=== PATIENT | female | born 1930 | race Caucasian/White ===

== ENCOUNTER → 2016-07-03 | Outpatient (CLI) | payer MEDICARE ==
[2016-07-03 10:36] LABS: BASOPHILS % (AUTO) 0 % (0-2); EOSINOPHILS # (AUTO) 0.2 10^3uL; EOSINOPHILS % (AUTO) 2 % (0-4); MEAN CORPUSCULAR HEMOGLOBIN 29.7 PG (26.0-34.0); MEAN CORPUSCULAR HGB CONC 32.3 g/dL (31.0-37.0); MEAN CORPUSCULAR VOLUME 92 FL (80-100); MEAN PLATELET VOLUME 9.9 FL (6.0-9.5); MONOCYTES # (AUTO) 0.8 X10^3; MONOCYTES % (AUTO) 7 % (3-11); NEUTROPHILS # (AUTO) 7.4 X10^3; NEUTROPHILS % (AUTO) 64 % (51-67); PLATELET COUNT 180 10^3uL (150-450)
[2016-07-03 11:13] LABS: ERYTHROCYTE SEDIMENTATION RT* 17 mm/hr (0-23)
== END ==
LOC: LAB 10:23
PROVIDERS: ATTEND Internal Medicine
DX: R51 Headache (principal)
CPT/HCPCS: 36415; 85025; 85652

== ENCOUNTER → 2016-07-30 | Outpatient (REF) | payer MEDICARE ==
[2016-07-30 18:20] LABS: BASOPHILS % (AUTO) 0 % (0-2); EOSINOPHILS # (AUTO) 0.2 10^3uL; EOSINOPHILS % (AUTO) 3 % (0-4); LYMPHOCYTES # (AUTO) 2.9 X10^3; MEAN CORPUSCULAR HEMOGLOBIN 30.8 PG (26.0-34.0); MEAN CORPUSCULAR VOLUME 91 FL (80-100); MONOCYTES # (AUTO) 0.8 X10^3; MONOCYTES % (AUTO) 10 % (3-11); NEUTROPHILS # (AUTO) 3.7 X10^3; NEUTROPHILS % (AUTO) 49 % (51-67); PLATELET COUNT 216 10^3uL (150-450); WHITE BLOOD COUNT 7.63 10^3uL (4.0-11.0)
[2016-07-30 18:21] LABS: ANION GAP 16.9 MEQ/L (3-15)
== END ==
LOC: LAB 16:56
PROVIDERS: ATTEND Internal Medicine
DX: E11.9 Type 2 diabetes mellitus without complications (principal); R10.13 Epigastric pain; K86.1 Other chronic pancreatitis; I10 Essential (primary) hypertension
CPT/HCPCS: 80048; 82150; 83036; 83690; 84450; 85025; 86140

== ENCOUNTER → 2016-08-22 | Outpatient (CLI) | payer MEDICARE ==
[~2016-08-22] MED LIST: ROPIVACAINE 1% 10 MG/ML (NAROPIN) 10 ML AMPUL ONE; methylPREDNISolone 80 MG/ML (DEPO MEDROL) VIAL IM ONE
== END ==
LOC: PMC 11:18
PROVIDERS: ATTEND Internal Medicine
DX: M75.52 Bursitis of left shoulder (principal)
CPT/HCPCS: 20610; J1040; J2795

== ENCOUNTER 2016-10-08 11:50 | Emergency (ER) | payer MEDICARE ==
[~2016-10-08] VITALS: Ht 142.2 cm; Wt 61.0 kg
[~2016-10-08 11:50] MED LIST changes: +AML5T PO; +ASPI-504 PO; +CYAN100072 PO; +FURO-125 PO; +GLIM1TAB PO; +HYDR-2013 PO; +HYDR-229 PO; +LIPA1CAP26 PO; +LVF500T PO; +NF-GLIP2.5 PO; +OMEP20CA6 PO; +ONDA4TAB8 PO; +PRAM0.12 PO; +PRV20T PO; -ROPIVACAINE 1% 10 MG/ML (NAROPIN) 10 ML AMPUL ONE; +SERT25TA PO; +SERT25TA69 PO; -methylPREDNISolone 80 MG/ML (DEPO MEDROL) VIAL IM ONE; +statin
--- OUTSIDE RECORDS SUMMARY | 2016-10-08 11:54 | XMS REPORT | Continuity of Care Document ---
Author Author Franco [facility] Address Unknown Phone Unavailable Care Team Providers Care Cat Operator Name Role Phone ZANE GILL MD PCP [phone] Insurance Providers Payer Name Policy Number Subscriber Name Relationship Medicare Advantage [id number] Tammy Boswell 20 Self / Same As Patient Advance Directives Directive Response Recorded Date/Time Advanced Directives No 04/24/16 9:44pm Other Pt. does not have DPOA; Advanced Directives or Living Will. Daughter state 07/27/15 8:48am Chief Complaint and Reason for Visit Chief Complaint Pain Reason for Visit Left shoulder pain Problems Active Problems Medical Problem Onset Date Status Abdominal pain 04/29/2013 Acute Abdominal pain ~07/27/2015 Acute Bacteremia 05/03/2013 Acute Chest pain 04/19/2013 Acute Left shoulder pain Unknown Acute Pain in calf 03/04/2013 Acute Pruritic rash 07/03/2013 Acute Medications Current Home Medications Medication Dose Units Route Directions Days/Qty Instructions Start Date Amlodipine Besylate (Norvasc) 5 Mg 5 Mg ORAL Daily 03/04/13 Sertraline Hcl (Zoloft) 25 Mg 25 Mg ORAL Daily 04/19/13 Pravastatin Sodium (Pravachol) 20 Mg 20 Mg ORAL Daily 04/19/13 Pramipexole (Pramipexole Dihydrochloride) 0.125 Mg 0.25 Mg ORAL Bedtime 04/19/13 Aspirin 81 Mg 81 Mg ORAL Daily 04/19/13 Cyanocobalamin (Vitamin B-12) 1,000 Mcg 2,000 Mcg ORAL Daily Omeprazole 20 Mg 20 Mg ORAL Daily 04/19/13 Ondansetron 4 Mg 4 Mg ORAL Every 4HRS as needed for Nausea 10 07/27/15 Glimepiride 1 Mg 1 Mg ORAL Daily 90 08/11/15 Past Home Medications Medication Directions Ordered Status Glipizide 2.5 Mg Tab.er.24, 2.5 Mg Oral Daily 03/04/13 Discontinued Lipase/Protease/Amylase 1 Each Capsule.dr, 1 Cap Oral Breakfast And Lunch 08/12 Discontinued [Statin] , 03/04/13 Discontinued Hydrocodone Bit/Acetaminophen 1 Each Tablet, 1 - 2 Each Oral Every 4HRS 03/04 Discontinued Furosemide 20 Mg Tablet, 20 Mg Oral M W F 04/19/13 Discontinued Hydrocodone Bit/Acetaminophen 1 Each Tablet, 1 Each Oral Three Times A Day Discontinued Levofloxacin 500 Mg Tab, 500 Mg Oral 05/05/13 Discontinued Social History Social History Problem Response Recorded Date/Time Onset Date Status Exposure to occupational hazards Yes 05/03/2013 1:10pm Query Response Start Date Stop Date Smoking Status Former smoker Hospital Discharge Instructions No hospital discharge instructions. Plan of Care Discharge Date 04/24/16 10:40pm Disposition 01 HOME OR SELF-CARE Condition at Discharge Stable Instructions/Education Provided Shoulder Dislocation Exercises (GEN) Shoulder Sprain (ED) Prescriptions See Medication Section Referrals ZANE GILL MD - Additional Instructions/Education It is unclear what is causing your pain in the shoulder. It is likely a strain. If it is not getting better with range of motion exercises and the splint in the next 1-2 days then return to the hospital for a CT scan to look for a hidden fracture. Use your home norco for pain medications. Some of your test results may not be complete prior to your leaving the Emergency Department. The Emergency Department is not authorized to give test results over the phone. Please contact the doctor's office listed in this packet of information for your final results. Follow up with your primary care physician or return to the Emergency Department for worsening or worrisome symptoms. * Emergency Department phone number: [phone], x [phone]* MEDICAL RECORD If you need copies of your X-rays, call [phone]. If you need copies of your medical record, including lab results, a signed authorization for release of records will be required. A telephone call for release of Health Information is not allowed. BILLING Billing can sometimes be confusing and frustrating. To help avoid confusion in the future, please take a moment to acquaint yourself with the billing parties for services. SERVICE BILLING LIBERTARIAN Emergency Room Services [facility] Physician Services [facility] X-rays [facility] Patients will receive bills for services from the appropriate provider. If you have any questions about your [facility] bill, our staff will be happy to assist you. Please call [phone], and ask for the billing department. THANK YOU for choosing [facility] as your emergency care provider! Care Plan and Goals ~~Discharge Care Plan~~ Problem: Contusion, pain to affected area, fall. Goal: Decreased contusion and pain to affected area. Instructions: Apply ice to area for 15-20 minutes every 3-4 hours. Elevate extremity above the level of the heart, if applicable. Splint area with pillow or blanket to any chest/abdomen injuries. Use incentive spirometry as directed. Take at least 10 deep breaths per hour. Take medication(s) as directed. Follow up with regular physician or specialist as directed. Exercise as tolerated or directed by physician. Functional Status No functional status results. Allergies, Adverse Reactions, Alerts Allergen Type Severity Reaction Status Last Updated Codeine Allergy Active 03/04/13 Immunizations Name Given Type Status Date Pneumonia Vaccine Received if Current 06/02/07 Historical Historical Vital Signs Acute Vital Signs Vital Response Date/Time Temperature (Fahrenheit) 97.6 04/24/2016 10:41pm Pulse 68 bpm 04/24/2016 10:41pm Respirations 20 04/24/2016 10:41pm Height 4 ft 8 in Weight 134 lb Body Mass Index 30.0 kg/m^2 Results No known relevant diagnostic tests, laboratory data and/or discharge summary. Procedures No known history of procedures. Encounters Encounter Location Arrival/Admit Date Discharge/Depart Date Attending Provider Departed Emergency Room [facility] 04/24/16 9:31pm 04/24/16 10:40pm WILLIE MORALES MD Recent Diagnosis
[2016-10-08 13:33] LABS: BASOPHILS % (AUTO) 0 % (0-2); EOSINOPHILS # (AUTO) 0.2 10^3uL; EOSINOPHILS % (AUTO) 3 % (0-4); MEAN CORPUSCULAR HEMOGLOBIN 29.7 PG (26.0-34.0); MEAN CORPUSCULAR VOLUME 93 FL (80-100); MONOCYTES # (AUTO) 0.7 X10^3; MONOCYTES % (AUTO) 8 % (3-11); NEUTROPHILS % (AUTO) 56 % (51-67); PLATELET COUNT 192 10^3uL (150-450); WHITE BLOOD COUNT 8.98 10^3uL (4.0-11.0)
[2016-10-08 13:47] LABS: ALBUMIN 4.3 g/dL (3.4-5.0); ALKALINE PHOSPHATASE 70 U/L (38-126); ANION GAP 18.1 MEQ/L (3-15); BUN/CREATININE RATIO 22 (10-20); CALCULATED IONIZED CALCIUM 3.9 mg/dL (3.8-4.6); TOTAL PROTEIN 7.9 g/dL (6.4-8.5)
[2016-10-08 15:06] VITALS: BP 109/72
== END 2016-10-08 15:06 | disposition home or self-care (01) ==
LOC: ED 11:51
DX: R07.89 Other chest pain (principal)
CPT/HCPCS: 36415; 80053; 84484; 85025; 85610; 93005; 93010; 99284